=== PATIENT | male | born 2000 ===

== ENCOUNTER 2019-11-15 19:59 | Emergency (ER) | payer SELFPAY ==
[2019-11-15] MEDS ORDERED: KETOROLAC 30 MG/1 ML INJ IV ONE (20:21)
[2019-11-15] MEDS ORDERED: SODIUM CHLORIDE 0.9% 1000 ML 1,000 ML IV ONE (20:21)
--- NOTE | 2019-11-15 20:33 | Emergency Department Report ---
HPI - General Chief Complaint: Back Pain/Injury Time Seen by Provider: 11/15/19 20:10 - HPI HPI: 19-year-old male presents to the emergency department by EMS from home with the complaint of bilateral flank pain that he believes is secondary to kidney ston es. This is been going on since yesterday. He has a history of previous kidney stones and says that this feels similar. He has not taken anything for her symptoms prior to presentation. No fever, nausea, vomiting. He says he does not have a primary care physician. He received 30 mg of Toradol in route with EMS. ED Past Medical Hx - Past Medical History Previous Medical History?: Yes Hx Kidney Stones: Yes (Last Stone 1 year ago) - Surgical History Past Surgical History?: No - Social History Smoking Status: Current Some Day Smoker Substance Use Type: None ED Review of Systems ROS: Stated complaint: KIDNEY STONES Other details as noted in HPI Comment: All other systems reviewed and negative Constitutional: denies: chills, fever Cardiovascular: denies: chest pain Gastrointestinal: abdominal pain. denies: vomiting Genitourinary: denies: dysuria, testicular pain Musculoskeletal: back pain. denies: joint swelling Physical Exam - Physical Exam Vital Signs: Vital Signs 11/15/19 20:11 Temperature 98.1 F Pulse Rate 82 Respiratory 16 Rate Blood Pressure 161/99 Blood Pressure 161/99 [Right] O2 Sat by Pulse 100 Oximetry Physical Exam: GENERAL: The patient is well-developed well-nourished. HEENT: Normocephalic. Atraumatic. Patient has moist mucous membranes. EYES: Extraocular motions are intact. NECK: Supple. Trachea is midline. CHEST/LUNGS: Clear to auscultation. There is no respiratory distress noted. HEART/CARDIOVASCULAR: Regular. There is no tachycardia. There is no gallop rub or murmur. ABDOMEN: Abdomen is soft. There is some mid to lower abdominal tenderness to palpation. No guarding. Patient has normal bowel sounds. There is no abdomi nal distention. SKIN: Skin is warm and dry. NEURO: The patient is awake, alert, and oriented. The patient is cooperative. The patient has no focal neurologic deficits. The patient has normal speech. MUSCULOSKELETAL: There is no tenderness or deformity. There is no evidence of acute injury. ED Course Vital Signs 11/15/19 20:11 Temperature 98.1 F Pulse Rate 82 Respiratory 16 Rate Blood Pressure 161/99 Blood Pressure 161/99 [Right] O2 Sat by Pulse 100 Oximetry ED Medical Decision Making - Lab Data Result diagrams: 11/15/19 20:35 11/15/19 20:35 - Radiology Data Radiology results: report reviewed CT of the abdomen and pelvis without contrast does not show any abdominal or pelvic pathology. - Medical Decision Making This patient presents with some bilateral flank and abdominal pain since last night that he thought was secondary to kidney stones. Labs have been unremarka ble including CBC, CMP and urinalysis. CT scan of the abdomen and pelvis without contrast does not show any stones or any other intra-abdominal or pelvic pathology. His vital signs were stable throughout his ED course included being afebrile. He was given a dose of pain medication and upon reevaluation he is feeling improved. He'll be discharged home to follow up with primary care and gastroenterology. He will return to the emergency Department with any worsening of his symptoms or any acute distress. - Differential Diagnosis nephrolithiasis, constipation, colitis, diverticulitis Critical Care Time: No Critical care attestation.: If time is entered above; I have spent that time in minutes in the direct care o f this critically ill patient, excluding procedure time. ED Disposition Clinical Impression: Flank pain Abdominal pain Qualifiers: Abdominal location: unspecified location Qualified Code(s): R10.9 - Unspecified abdominal pain Disposition: DC-01 TO HOME OR SELFCARE Is pt being admited?: No Condition: Stable Instructions: Abdominal Pain (ED), Flank Pain (ED) Additional Instructions: Please follow up with a primary care physician in the next few days. I am also giving you a referral for a local door liner, Dr. Red, to follow up regarding her abdominal pain. Return to the emergency Department with any worsening of your symptoms or any acute distress. Referrals: NASIM YORK MD [Staff Physician] - 3-5 Days MARIA ANTONIA RED MD [Staff Physician] - 3-5 Days [facility] [Outside] - 3-5 Days Time of Disposition: 23:29
[2019-11-15] MEDS ORDERED: MORPHINE 4 MG/1 ML INJ IV ONE (20:34)
--- NOTE | 2019-11-15 20:59 | Cat Scan Report ---
CT abdomen pelvis wo con INDICATION / CLINICAL INFORMATION: B/L Flank pain. TECHNIQUE: All CT scans at this location are performed using CT dose reduction for ALARA by means of automated e xposure control. COMPARISON: None available. FINDINGS: Limited lower thoracic images are negative. ABDOMEN: The gallbladder, liver, spleen and pancreas are normal. The kidneys are normal. No urinary calculi. No adrenal masses. No small bowel distention. No retroperitoneal adenopathy. Pelvis: There are no dependent fluid collections or acute inflammatory changes seen in the pelvis. A normal appendix is identified in the pelvis. No skeletal abnormality. IMPRESSION: 1. No abdominal or pelvic abnormality. Signer Name: Samm Pritchett MD Signed: 11/15/2019 8:55 PM Workstation Name: [id number]
[2019-11-15 21:33] LABS: Bilirubin,Urine NEG (Negative); Blood,Urine SM (Negative); Color,Urine Colorless (Yellow); Protein,Urine <15 mg/dL mg/dL (Negative); Urobilinogen,Urine < 2.0 mg/dL (<2.0); WBC,Urine < 1.0 /HPF (0.0-6.0)
[2019-11-15 21:45] LABS: Basophils % (Auto) 0.3 % (0.0-1.8); Eosinophils % (Auto) 0.5 % (0.0-4.3); Hematocrit 46.2 % (35.5-45.6); Hemoglobin 15.9 gm/dl (11.8-15.2); Lymphocytes # (Auto) 1.6 K/mm3 (1.2-5.4); Lymphocytes % (Auto) 17.3 % (13.4-35.0); Mean Corpuscular HGB Conc 34 % (32-34); Mean Corpuscular Volume 90 fl (84-94); Monocytes # (Auto) 0.5 K/mm3 (0.0-0.8); Monocytes % (Auto) 5.1 % (0.0-7.3); Platelet Count 219 K/mm3 (140-440); Red Blood Count 5.15 M/mm3 (3.65-5.03); Red Cell Distribution Width 12.3 % (13.2-15.2)
[2019-11-15 22:06] LABS: BUN/Creatinine Ratio 11; Blood Urea Nitrogen 8 mg/dL (9-20); Calcium 9.3 mg/dL (8.4-10.2); Hemolysis Index 8
[2019-11-15 22:33] LABS: Alanine Aminotransferase 26 units/L (7-56); Albumin 4.7 g/dL (3.9-5)
[2019-11-15 22:34] LABS: Bilirubin,Direct < 0.2 mg/dL (0-0.2)
[2019-11-16 00:46] VITALS: BP 139/85
== END 2019-11-15 23:40 | disposition home or self-care (01) ==
LOC: ED 19:59
DX: R10.9 Unspecified abdominal pain (principal); F17.200 Nicotine dependence, unspecified, uncomplicated
CPT/HCPCS: 36415; 74176; 80048; 80076; 81001; 85025; 96374; 99284; J2270; J7030

== ENCOUNTER 2020-01-29 09:17 | Emergency (ER) | payer SELFPAY ==
--- NOTE | 2020-01-29 11:21 | XRay Report ---
CHEST 2 VIEWS INDICATION: pain/cough. COMPARISON: None FINDINGS: Support devices: None. Heart: Within normal limits. Lungs/pleura: No acute air space or interstitial disease. No pneumothorax. Additional findings: None. IMPRESSION: No acute findings. Signer Name: Kolton Wade Jr, MD Signed: 01/29/2020 11:17 AM Workstation Name: [id number]
[2020-01-29] MEDS ORDERED: IBUPROFEN 800 MG TAB PO ONE (11:53)
[2020-01-29] MEDS ORDERED: guaiFENesin 100 MG/5 ML ORAL LIQD PO ONE (11:59)
--- NOTE | 2020-01-29 11:59 | Emergency Department Report ---
Minor Respiratory - HPI Chief Complaint: Upper Respiratory Infection Stated Complaint: COUGH Time Seen by Provider: 01/29/20 10:47 Duration: 1 Day Pain Location: Throat, Nose, Chest Severity: mild Minor Respiratory: Yes Able to Tolerate Fluids, Yes Cough, Yes Fever, No Rhinorrhea, No Sore Throat, No Ear Pain, No Sick Contacts, No Hemoptysis, No Chest Pain, No Shortness of Breath Other History: This is a 20-year-old male who presents the ED complaining of fever, body aches, mucus productive coughing x1 day. Patient states he feels really bad and feels like he has chills intermittently. Patient denies chest pain abdominal pain nausea vomiting or diarrhea. ED Review of Systems ROS: Stated complaint: COUGH Other details as noted in HPI Comment: All other systems reviewed and negative ED Past Medical Hx - Past Medical History Previous Medical History?: No Hx Kidney Stones: Yes (Last Stone 1 year ago) - Surgical History Past Surgical History?: No - Social History Smoking Status: Current Every Day Smoker Substance Use Type: None - Medications Home Medications: Home Medications Medication Instructions Recorded Confirmed Last Taken Type Ibuprofen [Motrin] 800 mg PO Q8HR #30 tablet 01/29/20 Unknown Rx guaiFENesin [Robitussin] 200 mg PO Q6HR #20 tablet 01/29/20 Unknown Rx Minor Respiratory Exam - Exam General: Vital signs noted. No distress. Alert and acting appropriately. HEENT: Yes Moist Mucous Membranes, No Pharyngeal Erythema, No Pharyngeal Exudates, No Rhinorrhea, No Conjuctival Injection, No Frontal Tenderness, No Maxillary Tenderness Ear: Neither TM Bulge, Neither TM Erythema, Neither EAC Pain, Neither EAC Discharge Neck: Yes Supple, No Adenopathy Lungs: Yes Good Air Exchange, No Wheezes, No Ronchi, No Stridor, No Cough, No Labored Respirations, No Retractions, No Use of Accessory Muscles, No Other Abnormal Lung Sounds Heart: Yes Regular, No Murmur Abdomen: Yes Normal Bowel Sounds, No Tenderness, No Peritoneal Signs Skin: No Rash, No Edema Neurologic: Alert and oriented, no deficits. Musculoskeletal: Unremarkable. ED Medical Decision Making - Radiology Data Radiology results: report reviewed, image reviewed CHEST 2 VIEWS INDICATION: pain/cough. COMPARISON: None FINDINGS: Support devices: None. Heart: Within normal limits. Lungs/pleura: No acute air space or interstitial disease. No pneumothorax. Additional findings: None. IMPRESSION: No acute findings. Signer Name: Kolton Davies Jr, MD Signed: 01/29/2020 11:17 AM Workstation Name: [id number] Transcribed By: LEWIS Dictated By: KOLTON DAVIES JR, MD Electronically Authenticated By: KOLTON DAVIES JR, MD Signed Date/Time: 01/29/20 1117 - Medical Decision Making 20-year-old male presents with flulike symptoms. Fever resolved no fever during the ED stay. Chest x-ray shows no acute findings no signs of pneumonia Discussed with patient symptomatic relief with [id number] medications. Discussed continue Tylenol and Motrin as needed for fever and pain. Discussed increase fluids and diet intake. Discussed rest much needed. Discussed daily vitamin C for immune booster. Discussed follow-up with plate slitter and inspector in 3-5 days. Patientverbally states she understands and will comply the following instruc tions and follow-up Vital signs stable. Patient is in no acute distress Critical care attestation.: If time is entered above; I have spent that time in minutes in the direct care of this critically ill patient, excluding procedure time. ED Disposition Clinical Impression: Acute upper respiratory infection, Acute bronchitis Disposition: DC-01 TO HOME OR SELFCARE Is pt being admited?: No Does the pt Need Aspirin: No Condition: Stable Instructions: Acute Bronchitis (ED) Additional Instructions: make sure to follow up with the primary care physician as discussed. Take all your medications as you've been prescribed. If you have any worsening symptoms or develop new symptoms please return to ED immediately. Prescriptions: Ibuprofen [Motrin] 800 mg PO Q8HR #30 tablet guaiFENesin [Robitussin] 200 mg PO Q6HR #20 tablet Referrals: PRIMARY CARE, [Primary Care Provider] - 3-5 Days [facility] [Outside] - 3-5 Days [facility] [Outside] - 3-5 Days Forms: Accompanied Note, Work/School Release Form(ED) Time of Disposition: 12:02
== END 2020-01-29 12:15 | disposition home or self-care (01) ==
LOC: ED 09:17
DX: J06.9 Acute upper respiratory infection, unspecified (principal); J20.9 Acute bronchitis, unspecified; F17.200 Nicotine dependence, unspecified, uncomplicated; Z87.442 Personal history of urinary calculi; Z79.899 Other long term (current) drug therapy
CPT/HCPCS: 71046; 99283